=== PATIENT | female | born 1935 | race Caucasian/White ===

== ENCOUNTER 2024-03-19 10:34 | Outpatient (REF) | payer MEDICARE, OTHER, SELFPAY ==
[2024-03-19 13:31] LABS: MANUAL DIFF FLAG NO
[2024-03-19 13:39] LABS: Basophils Absolute Auto 0.1 X10*3/uL (0.0-0.2); Basophils Percent Auto 1.1 % (0-2); Eosinophils Absolute Auto 0.1 X10*3/uL (0.0-0.4); Eosinophils Percent Auto 1.5 % (0-4); Hematocrit 44.4 % (37.0-47.0); Hemoglobin 14.9 g/dl (12.0-16.0); Imm Gran Abs Auto 0.03 X10*3/uL (0.00-0.03); Imm Gran Pct Auto 0.4 % (0.0-0.4); Lymphocytes Absolute Auto 2.9 X10*3/uL (1.2-4.9); Lymphocytes Percent Auto 36.6 % (20-40); Mean Corpuscular HGB Conc 33.6 g/dl (31.0-35.0); Mean Corpuscular Hemoglobin 30.7 pg (27.0-33.0); Mean Corpuscular Volume 91.5 fL (80.0-98.0); Mean Platelet Volume 12.4 fL (9.4-12.3); Monocytes Absolute Auto 0.7 X10*3/uL (0.1-1.2); Monocytes Percent Auto 8.3 % (2-11); Neutrophils Absolute Auto 4.2 x10*3/uL (2.0-8.3); Neutrophils Percent Auto 52.1 % (45-73); Platelet Count 292 X10*3/uL (160-400); Red Blood Count 4.85 X10*6/uL (4.20-5.50); Red Cell Distribution Width 13.6 % (11.0-16.0)
[2024-03-19 14:46] LABS: Alanine Aminotransferase 7 U/L (0-31); Albumin Level 4.3 g/dL (3.5-5.0); Alkaline Phosphatase 71 U/L (39-117); Anion Gap 17 (12-20); Aspartate Amino Transferase 24 U/L (5-31); Bilirubin Total 0.9 mg/dL (0.0-1.0); Blood Urea Nitrogen 16 mg/dL (9-16); Calcium 9.6 mg/dL (8.4-10.2); Carbon Dioxide 23 mmol/L (22-29); Chloride 103 mmol/L (96-108); Estimated Glomerular Filt Rate 45; Glucose Random 129 mg/dL (60-115); Potassium 4.2 mmol/L (3.3-5.1); Sodium 139 mmol/L (135-145); Total Protein 7.5 g/dL (6.5-8.0)
[2024-03-19 15:03] LABS: Vitamin D 25-OH Total 32.4 ng/mL (>30)
== END 2024-03-19 10:35 | disposition home or self-care (01) ==
LOC: HO.MANLDS 10:34
PROVIDERS: Visit Provider Internal Medicine
DX: I10 Essential (primary) hypertension (principal)
CPT/HCPCS: 36415; 80053; 82306; 85025

== ENCOUNTER 2025-02-25 11:27 | Outpatient (REF) | payer MEDICARE, OTHER, SELFPAY ==
--- OUTSIDE RECORDS SUMMARY | 2025-02-25 12:51 | XMS_ITS | Data Portability ---
Author Organization [facility] Address [address] [place] [address] Assessment Encounter Date Assessment Date Assessment LastModified by Organization Details LastModified Time 12/14/2020 12/14/2020 [id number] [place] [id number] (VACATION GUIDE) MDM MODERATE MUST MEET 2 OUT OF 3 ELEMENTS: PROBLEMS, DATA OR RISK ELEMENT 1: PROBLEMS ADDRESSED OR 2 OR MORE STABLE CHRONIC ILLNESSES OR OR OR ELEMENT 2: DATA MUST MEET 1 OF 3 CATEGORIES CATEGORY 1: REVIEW OF PRIOR EXTERNAL NOTES, REVIEW OF RESULTS, ORDERING OF EACH TEST, ASSESSMENT REQUIRING INDEPENDENT HISTORIAN OR CATEGORY 2: OR CATEGORY 3: ELEMENT 3: RISK RISK OF COMPLICATIONS AND/OR MORBIDITY OR MORTALITY OF PATIENT MANAGEMENT PROVIDER MUST THOROUGHLY DOCUMENT EACH ELEMENT THAT IS COVERED [email or web address] Not available 12/14/2020 14:54:51 03/19/2024 03/19/2024 [id number] [place] [id number] (VACATION GUIDE) MDM MODERATE MUST MEET 2 OUT OF 3 ELEMENTS: PROBLEMS, DATA OR RISK ELEMENT 1: PROBLEMS ADDRESSED 1 OR MORE CHRONIC ILLNESS WITH EXACERBATION OR 2 OR MORE STABLE CHRONIC ILLNESSES OR 1 UNDIAGNOSED NEW PROBLEM OR 1 ACUTE ILLNESS W/SYMPTOMS OR 1 ACUTE COMPLICATED INJURY ELEMENT 2: DATA MUST MEET 1 OF 3 CATEGORIES CATEGORY 1: REVIEW OF PRIOR EXTERNAL NOTES, REVIEW OF RESULTS, ORDERING OF EACH TEST, ASSESSMENT REQUIRING INDEPENDENT HISTORIAN OR CATEGORY 2: INDEPENDENT INTERPRETATION OF TESTS BY ANOTHER PHYSICIAN OR SPECIALIST OR CATEGORY 3: DISCUSSION OF MGT OR TEST INTERPRETATION W/EXTERNAL PHYSICIAN OR SPECIALIST ELEMENT 3: RISK RISK OF COMPLICATIONS AND/OR MORBIDITY OR MORTALITY OF PATIENT MANAGEMENT PROVIDER MUST THOROUGHLY DOCUMENT EACH ELEMENT THAT IS COVERED Not available 03/19/2024 10:24:09 02/17/2025 02/17/2025 [id number] [place] [address] (VACATION GUIDE) MDM MODERATE MUST MEET 2 OUT OF 3 ELEMENTS: PROBLEMS, DATA OR RISK ELEMENT 1: PROBLEMS ADDRESSED 1 OR MORE CHRONIC ILLNESS WITH EXACERBATION OR 2 OR MORE STABLE CHRONIC ILLNESSES OR 1 UNDIAGNOSED NEW PROBLEM OR 1 ACUTE ILLNESS W/SYMPTOMS OR 1 ACUTE COMPLICATED INJURY ELEMENT 2: DATA MUST MEET 1 OF 3 CATEGORIES CATEGORY 1: REVIEW OF PRIOR EXTERNAL NOTES, REVIEW OF RESULTS, ORDERING OF EACH TEST, ASSESSMENT REQUIRING INDEPENDENT HISTORIAN OR CATEGORY 2: INDEPENDENT INTERPRETATION OF TESTS BY ANOTHER PHYSICIAN OR SPECIALIST OR CATEGORY 3: DISCUSSION OF MGT OR TEST INTERPRETATION W/EXTERNAL PHYSICIAN OR SPECIALIST ELEMENT 3: RISK RISK OF COMPLICATIONS AND/OR MORBIDITY OR MORTALITY OF PATIENT MANAGEMENT PROVIDER MUST THOROUGHLY DOCUMENT EACH ELEMENT THAT IS COVERED Not available 02/17/2025 16:46:26 Plan of Treatment Reminders Order Date Submit Date Provider Last Modified By Organization Details Last Modified Time Details Appointments FOLLOW UP 15 2024 09:45A M DR ROACH Not available Not available Not available Lab CMP, serum or plasma 2024 025 [facility], [address] [place] [address], [id number], 02/17/2025 16:53:50 CBC 2024 025 [facility], [address] [place] [address], [id number], 02/17/2025 16:53:50 vitamin B12, serum 2024 025 [facility], [address] [place] [address], [id number], 02/17/2025 16:53:50 CMP, serum or plasma 2023 024 [facility], [address] [place] [address], [id number], 03/19/2024 10:34:56 CBC 2023 024 [facility], [address] [place] [address], [id number], 03/20/2024 11:13:54 vitamin D, 25-hydrox y, total, serum 2023 024 [facility], [address] [place] [address], [id number], 03/19/2024 10:34:56 Referral None recorded. Procedures None recorded. Surgeries None recorded. Imaging US, echocardi ogram 2021 [email or web address] 10 [facility], [address] [facility], [place], [address], 07/14/2022 09:33:31 Medication Orders amlodipin e 10 mg tablet 2021 [facility] #[id number], [address], [place], [id number], 04/30/2023 13:46:52 atenolol 100 mg tablet 2021 [facility] #[id number], [address], [place], [id number], 08/25/2022 14:21:17 amlodipin e 5 mg tablet 2021 [facility] #[id number], [address], [place], [id number], 04/30/2023 13:47:03 fluocinon yasmine 0.05 % topical cream 2020 [facility] [place] #22930, [address], [place], [id number], 07/11/2022 15:54:44 Patient TargetsNo targets recorded. Patient InstructionsNo instructions recorded. Reason for Referral None Reported. Results Created Date Observation Date Name Description Value Unit Range Abnormal Flag Note LastModifiedBy Organization Detail LastModifiedTime Result Notes None recorded. Problems Name Problem SNOMED Code Status Onset Date Resolution Date Notes Provider Name and Address Organization Details Recorded Time Hypertensi ve disorder 62688502 Active 2018 Not Available 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 2 11:45:06 Eczema 57352926 Active 2020 Not Available [facility] 2 11:45:07 Essential hypertensi on 08761324 Active 2021 AIDAN GUERRERO [address] [place], [address], [facility] 2 14:15:37 Problem Notes None recorded. Medical Equipment None Reported. Allergies Allergen ID Allergen Name Allergen Category Reaction Reaction Severity Criticality Documentation Date Start Date Code Code System Note Provider Name and Address Organization Details Recorded Time 2952 metoprolo l Not available Not available Not available Not available 2019 6918 RxNorm sensi tivit y- doesn 't work Meche dalton [facility] 9 15:23:26 2955 quinine sulfate medicatio n Not available Not available Not available 01/08/2019 9075 RxNorm Meche dalton [facility] 9 09:50:41 Medications Name Sig Start Date Stop Date Status Note LastModified by Organization Details LastModified Time atenolol 100 mg tablet Take 1 tablet every day by oral route for 90 days. 08/25 completed - pt said was too much went back to 50 mg Not Available Not Available Not Available valacyclovi r 1 gram tablet 07/12 completed Not Available Not Available Not Available amlodipine 5 mg tablet TAKE 1 TABLET BY MOUTH EVERY DAY 04/30 completed Not Available Not Available Not Available acyclovir 800 mg tablet 07/12 completed Not Available Not Available Not Available amlodipine 10 mg tablet TAKE 1 TABLET BY MOUTH EVERY DAY DIRECTED active Not Available Not Available No t Available fluocinonid e 0.05 % topical cream APPLY TO THE AFFECTED AREA(S) BY TOPICAL ROUTE 2 TIMES PER DAY PRN 07/11 completed Not Available Not Available Not Available atenolol 50 mg tablet Take 1 tablet every day by oral route as directed for 90 days. active Not Available Not Available No t Available atenolol 02/17 completed Not Available Not Available Not Available Vitals Date Recorded Body weight Heart rate Oxygen saturation Oxygen saturation in Arterial blood by Pulse oximetry Systolic blood pressure Diastolic blood pressure Provider Name and Address Organization Details Last Updated DateTime 1 21741.4 2 g 66 /min 98 % 98 % 152 mm[Hg] 90 mm[Hg] Suad Martinezrich [facility] 1 14:40:02 Date Recorded Body weight Oxygen saturation Oxygen saturation in Arterial blood by Pulse oximetry Heart rate Systolic blood pressure Diastolic blood pressure Provider Name and Address Organization Details Last Updated DateTime 2 90744.8 3 g 98 % 98 % 74 /min 200 mm[Hg] 80 mm[Hg] Stacey Ferrer [facility] 2 14:07:04 Date Recorded Body height Provider Name an d Address Organization Details Last Updated DateTime 08/01/2022 157.48 cm Stacey Ferrer [facility] I nternal Medicine 08/01/2022 09:19:35 Date Recorded Body weight Heart rate Oxygen saturation Oxygen saturation in Arterial blood by Pulse oximetry Systolic blood pressure Diastolic blood pressure Provider Name and Address Organization Details Last Updated DateTime 4 17874.9 g 80 /min 99 % 99 % 148 mm[Hg] 82 mm[Hg] Cheryl Petersen [facility] 4 10:00:29 Date Recorded Body height Body mass index (BMI) Body weight Heart rate Oxygen saturation Oxygen saturation in Arterial blood by Pulse oximetry Systolic blood pressure Diastolic blood pressure Provider Name and Address Organization Details Last Updated DateTime 5 157.48 cm 21.6 kg/m2 69666.9 g 73 /min 98 % 98 % 120 mm[Hg] 70 mm[Hg] Saba Gotti [facility] 5 16:37:11 Social History Question Answer Notes LastModified by Organizat ion Details LastModified Time Tobacco Smoking Status Never Smoker Not Available [facility] 08/10/2020 03:36:23 What Was The Date Of Your Most Recent Tobacco Screening? 02/17/2025 [email or web address] Information not available 02/17/2025 Sex: Unknown Functional Status None recorded. Mental Status None recorded. Family History Nothing Reported. Medical History No medical history recorded. Gynecological HistoryNo gynecological history recorded. Obstetrics History GPAL:G 0 P 0 0 0 0 Immunizations Vaccine Type Date Status Note Provider Jesus lance and Address Organization Details Recorded Time Influenza, split virus, quadrivalent, preservative 8 completed Not Available [facility] 11/21/2021 14:55:11 COVID-19, mRNA, LNP-S, PF, 30 mcg/0.3 mL dose 2 completed Meche dalton [facility] 01/30/2022 08:37:52 Pneumococcal conjugate PCV 13 8 completed Not Available [facility] 11/21/2021 14:55:11 zoster live 9 completed Not Available [facility] 11/21/2021 14:55:11 Influenza, split virus, quadrivalent, preservative 9 completed Not Available [facility] 11/21/2021 14:55:11 zoster live 9 completed Not Available [facility] 11/21/2021 14:55:11 pneumococcal polysaccharide PPV23 0 completed Not Available [facility] 11/21/2021 14:55:11 Influenza, split virus, quadrivalent, preservative 0 completed Not Available [facility] 11/21/2021 14:55:11 COVID-19 vaccine, vector-nr, rS-ChAdOx1, PF, 0.5 mL 1 completed Not Available [facility] 11/21/2021 14:55:11 COVID-19 vaccine, vector-nr, rS-ChAdOx1, PF, 0.5 mL 1 completed Not Available [facility] 11/21/2021 14:55:11 Past Encounters Encounter ID Performer Location Encounter Start Date Encounter Closed Date Diagnosis/Indication Diagnosis SNOMED-CT Code Diagnosis ICD10 Code Diagnosis Note [id number] Nando Roach [facility] [address] [facility],[place] [address] 01/08/2019 09:46:08 01/08/2019 10:56:11 Hypertensive disorder 72627298 I10 denies any issues no major prob otherwise [id number] Nando Roach [facility] [address] [facility],[place] [address] 04/16/2019 09:41:20 04/16/2019 12:13:02 Hypertensive disorder 64086274 I10 -blood pressures at home are at an acceptable range for age -blood pressures at office are consistent ly elevated -discussed benefits of diet and exercise including benefit of occasional glass of red wine -discussed heart rate changes with activity -continue to take atenolol 75mg daily [id number] Nando Roach [facility] [address] [facility],[place] [address] 12/14/2020 14:26:42 12/15/2020 09:26:50 Hypertensive disorder 42602144 I10 BP is excellent at home with great readings tends to have white coat with her BP in the office cannot take anymore atenolol as it causes dizziness and drops her BP very low Eczema 60967920 L30.9 needs refill of her medication uses it for contact dermatitis and eczema [id number] Nando Roach [facility] [address] [facility],[place] [address] 07/12/2022 13:56:50 07/12/2022 15:09:25 Essential hypertension 85604421 I10 will f/u with amlodipine Hypertensive disorder 38 316878 I10 possible change in manufactur e?and the echo to ro cardiac condition no murmurs on exam [id number] Nando Roach [facility] [address] [facility],[place] [address] 08/01/2022 09:15:51 08/01/2022 10:00:41 Essential hypertension 64868453 I10 medication corrected to current dosing [id number] Nando Roach [facility] [address] [facility],[place] [address] 03/19/2024 09:52:11 03/19/2024 10:34:28 Essential hypertension 80216912 I10 doing well sometimes diastolic drops a bitshe will seperate taking her pills and take one in am and one in pmtold her not to take too much asa Depression screening 171 342968 Z13.31 SCREENING NEGATIVE [id number] Nando Roach [facility] [address] [facility],[place] [address] 02/17/2025 16:12:14 02/17/2025 16:55:02 Essential hypertension 32171693 I10 doing well sometimes diastolic drops mick ojeda will seperate taking her pills and take one in am and one in pmtold her not to take too much asa Hypertensive disorder 38 562055 I10 -blood pressures at home are at an acceptable range for age -blood pressures at office are consistent ly elevated -discussed benefits of diet and exercise including benefit of occasional glass of red wine -discussed heart rate changes with activity -continue to take atenolol 50mg daily Depression screening 171 517633 Z13.31 SCREENING NEGATIVE Health Concerns Section Related Observation LastModified by Organization Detai ls LastModified Time None Recorded Concern Status LastModified by Organization Details LastModified Time None Recorded Advance Directives Directive None Recorded Payers Encounter Date Sequence Insurance Name Policy Number Policy Schroeder Covered Member ID Schroeder Member ID Guarantor Name 12/14/2020 1 [place]ICARE B-[place]: [facility] Jewel D Rentzschke [id number] Jewel Rentzschke 12/14/2020 2 [facility] IN[employer]MNITY PLAN - [employer] [id number] Jewel D Rentzschke [id number] Jewel Rentzschke 07/12/2022 1 [place] [facility] Jewel D Rentzschke [id number] Jewel Rentzschke 07/12/2022 2 [facility] IN[employer]MNITY [employer] - [employer] [id number] Jewel D Rentzschke [id number] Jewel Rentzschke 08/01/2022 1 [place] [facility] Jewel D Rentzschke [id number] Jewel Rentzschke 08/01/2022 2 [facility] IN[facility]MN[facility] - [employer] [id number] 38 Jewel D Rentzschke [id number] Jewel Rentzschke 03/19/2024 1 [place] [facility] Jewel D Rentzschke [id number] 97 Jewel Rentzschke 03/19/2024 2 [facility] IN[employer]MNITY PLAN - [employer] [id number] 38 Jewel D Rentzschke [id number] Jewel Rentzschke 02/17/2025 1 [place]: [facility] Gil Robledo [id number] Gil Robledo 02/17/2025 2 [facility] [id number] 38 Gil Robledo [id number] Gil Robledo Notes Date Note Type Note Provider Name and Address Organization Details Recorded Time 1 text/htm l BP fu today in the office the patient BP is elevated however her recordings at home are excellent, tends to elevate when she is sitting around, comes down with activity the patient is doing well on the BP medication with no side effects and no adjustment of their medications needed today at the appointment the patient reports she stopped taking a pill and a half of the atenolol, just went back to the 1 pill due to BP dropping done to the 90/80 causing dizziness well-controlled on medication denies chest pain, sob, ankle swelling, orthopnea, palpitations AIDAN GUERRERO [address] [place], [address], [facility] 12/14/2020 14:57:54 2 text/htm l c/o elevated BP will start on amlodipinecardiac exam was normal will start with echo to determine heart health will keep a logwill karla red get an update for me on sunday HR and pulse ox stable AIDAN GUERRERO [address] [place], [address], [facility] 07/12/2022 14:29:01 2 text/htm l f/u BP the patient's BP is normal (excellent with activity)worse with inactivity the patient reports that she has been trying to be more mindful of her activitywith overactivity her BP tends to spike discussed rest periods and continuing with activity that she can tolerateshe is doing very well and is a very active and healthy 87 y/o woman will continue her BP meds as prescribed her home BPs are excellent no other adjustments needed will call if there is any other issues AIDAN GUERRERO [address] [place], [address], [facility] 08/01/2022 09:41:09 4 text/htm l Care Management - HypertensionReported bypatient.Self Care:not under emotional stress Severity:symptoms are improving; does not interfere with daily activities Associated Symptoms:no dizziness; no lightheadedness; no chest pain; no shortness of breath; no palpitations; no edema; no calf muscle cramps; no blurred vision; no confusion; no headaches; no fatigue here fpr rechk doing ok overall but has noticed she is getting very fatiguedno cp nosob goes up and down stairs without issuerelated just s gets quite fatigued after working outside in the weather Nando Roach DO [address] [place] [address], [phone], [facility] 03/19/2024 10:31:38 5 text/htm l Care Management - HypertensionReported bypatient.Self Care:not under emotional stress Severity:symptoms are improving; does not interfere with daily activities Associated Symptoms:no dizziness; no lightheadedness; no chest pain; no shortness of breath; no palpitations; no edema; no calf muscle cramps; no blurred vision; no confusion; no headaches; no fatigue reviewed her meds in detail Nando Roach DO [address] [place] [address], [phone], [facility] 02/17/2025 16:54:37 OBGyn Episode No OBEpisode recorded.
[2025-02-25 13:05] LABS: MANUAL DIFF FLAG NO
[2025-02-25 13:18] LABS: Basophils Absolute Auto 0.1 X10*3/uL (0.0-0.2); Basophils Percent Auto 1.1 % (0-2); Eosinophils Absolute Auto 0.2 X10*3/uL (0.0-0.4); Eosinophils Percent Auto 2.9 % (0-4); Hemoglobin 13.1 g/dl (12.0-16.0); Imm Gran Abs Auto 0.02 X10*3/uL (0.00-0.03); Imm Gran Pct Auto 0.2 % (0.0-0.4); Lymphocytes Absolute Auto 3.2 X10*3/uL (1.2-4.9); Lymphocytes Percent Auto 38.5 % (20-40); Mean Corpuscular HGB Conc 34.5 g/dl (31.0-35.0); Mean Corpuscular Hemoglobin 30.9 pg (27.0-33.0); Mean Corpuscular Volume 89.6 fL (80.0-98.0); Mean Platelet Volume 11.3 fL (9.4-12.3); Monocytes Absolute Auto 0.6 X10*3/uL (0.1-1.2); Monocytes Percent Auto 7.6 % (2-11); Neutrophils Absolute Auto 4.1 x10*3/uL (2.0-8.3); Neutrophils Percent Auto 49.7 % (45-73); Platelet Count 247 X10*3/uL (160-400); Red Blood Count 4.24 X10*6/uL (4.20-5.50); Red Cell Distribution Width 13.4 % (11.0-16.0); White Blood Count 8.3 X10*3/uL (4.8-10.8)
[2025-02-25 14:03] LABS: Vitamin B12 295 pg/mL (200-900)
[2025-02-25 14:39] LABS: Alanine Aminotransferase 12 U/L (0-31); Albumin Level 4.1 g/dL (3.5-5.0); Anion Gap 13 (12-20); Aspartate Amino Transferase 26 U/L (5-31); Bilirubin Total 0.8 mg/dL (0.0-1.0); Blood Urea Nitrogen 24 mg/dL (9-16); Calcium 9.3 mg/dL (8.4-10.2); Carbon Dioxide 23 mmol/L (22-29); Chloride 106 mmol/L (96-108); Estimated Glomerular Filt Rate 39; Glucose Random 121 mg/dL (60-115); Potassium 4.3 mmol/L (3.3-5.1); Sodium 138 mmol/L (135-145); Total Protein 6.9 g/dL (6.5-8.0)
[2025-02-25 16:05] LABS: Alkaline Phosphatase 62 U/L (39-117)
== END 2025-02-25 11:28 | disposition home or self-care (01) ==
LOC: HO.MANLDS 11:27
PROVIDERS: Visit Provider Internal Medicine
DX: I10 Essential (primary) hypertension (principal)
CPT/HCPCS: 36415; 80053; 82607; 85025